=== PATIENT | female | born 1935 | race Hispanic/Latino ===

== ENCOUNTER 2022-02-03 17:22 | Inpatient (IN) | payer MEDICARE, OTHER ==
[~2022-02-03] VITALS: Ht 152.4 cm; Wt 54.4 kg
[2022-02-03] MEDS ORDERED: ONDANSETRON HCL INJ 2MG/ML 2ML 2 MG/ML VIAL IV STA (18:52)
[2022-02-03 19:22] LABS: BASOPHILS # (AUTO) 0.1 (0.0-0.1); BASOPHILS % 0.3 % (0.0-1.0); EOSINOPHILS % 0.2 % (0.0-6.0); HEMATOCRIT 38.2 % (34.2-44.1); LYMPHOCYTES # (AUTO) 1.9 (1.0-3.2); LYMPHOCYTES % 9.4 % (18.0-39.1); MEAN CORPUSCULAR HEMOGLOBIN 29.7 pg (28-32); MEAN CORPUSCULAR VOLUME 87.4 fL (81-99); MONOCYTES # (AUTO) 1.3 (0.2-0.8); MONOCYTES % 6.6 % (4.4-11.3); NEUTROPHILS # (AUTO) 16.3 (2.1-6.9); NEUTROPHILS % 82.8 % (38.7-80.0); PLATELET COUNT 200 x10e3/uL (140-360); RED BLOOD COUNT 4.37 x10e6/uL (3.6-5.1); RED CELL DISTRIBUTION WIDTH 13.3 % (11.7-14.4)
[2022-02-03 19:28] LABS: CLARITY,URINE CLOUDY (CLEAR); COLOR,URINE YELLOW (YELLOW); LEUKOCYTE ESTERASE ,URINE LARGE (NEGATIVE); NITRITE,URINE POSITIVE (NEGATIVE); PROTEIN,URINE DIPSTICK 1+ (NEGATIVE)
[2022-02-03 19:29] LABS: KETONES,URINE NEGATIVE (NEGATIVE); URINE UROBILINOGEN 0.2 mg/dL (0.2 - 1)
[2022-02-03 19:33] LABS: BACTERIA,URINE MODERATE /HPF; EPITHELIAL CELLS,URINE RARE /LPF; WBC,URINE (MAN) >50 /HPF (0-5)
[2022-02-03 19:43] LABS: ALANINE AMINOTRANSFERASE 20 IU/L (0-55); ALBUMIN 4.3 g/dL (3.5-5.0); ALKALINE PHOSPHATASE 116 IU/L (40-150); ANION GAP 19.2 mmol/L (8-16); BLOOD UREA NITROGEN 6 mg/dL (7-26); BUN/CREATININE RATIO 9 (6-25); CALCIUM 9.1 mg/dL (8.4-10.2); CARBON DIOXIDE 22 mmol/L (22-29); CHLORIDE 91 mmol/L (98-107); CREATINE KINASE 43 IU/L (29-168); CREATININE, SERUM 0.66 mg/dL (0.57-1.11); GLUCOSE 126 mg/dL (74-118); POTASSIUM 4.2 mmol/L (3.5-5.1); SODIUM 128 mmol/L (136-145)
[2022-02-03] MEDS ORDERED: ONDANSETRON HCL INJ 2MG/ML 2ML 2 MG/ML VIAL IV PRN (20:30)
[2022-02-03] MEDS: ACETAMINOPHEN 325 MG TAB PO PRN (21:39)
[2022-02-03] MEDS ORDERED: SODIUM CHLORIDE 0.9% 1000ML 1,000 ML IV ONE (21:45)
[2022-02-03] MEDS: SODIUM CHLORIDE 0.9% 1000ML 1,000 ML IV SCH (22:40)
[2022-02-03 23:47] VITALS: BP 107/66
[2022-02-04] VITALS (8 sets, daily range): BP systolic 98–129; BP diastolic 60–70
[2022-02-04] MEDS: SODIUM CHLORIDE 0.9% 1000ML 1,000 ML IV SCH (01:16)
[2022-02-04] MEDS ORDERED: PHENOBARBITAL64.8 MG PO (01:31)
[2022-02-04] MEDS ORDERED: LEVOTHYROXINE50 MCG PO (01:59)
[2022-02-04] MEDS ORDERED: OMEPRAZOLE40 MG PO (01:59)
[2022-02-04] MEDS ORDERED: SODIUM CHLORIDE1 GM PO ×2 (01:59)
[2022-02-04] MEDS ORDERED: VITAMIN D325 MCG (01:59)
[2022-02-04] MEDS ORDERED: FLONASE ALLERG9.9 ML INH (01:59)
[2022-02-04] MEDS ORDERED: TROSPIUM CHLORI60 MG PO (01:59)
[2022-02-04] MEDS ORDERED: KEPPRA250 MG PO (01:59)
[2022-02-04] MEDS ORDERED: POTASSIUM CHLO20 ME1 PO (01:59)
[2022-02-04 04:53] LABS: BASOPHILS % 0.2 % (0.0-1.0); EOSINOPHILS % 0.2 % (0.0-6.0); HEMATOCRIT 30.5 % (34.2-44.1); HEMOGLOBIN 10.5 g/dL (12.0-16.0); LYMPHOCYTES # (AUTO) 1.7 (1.0-3.2); LYMPHOCYTES % 16.5 % (18.0-39.1); MEAN CORPUSCULAR HEMOGLOBIN 29.9 pg (28-32); MEAN CORPUSCULAR HGB CONC 34.4 g/dL (31-35); MEAN CORPUSCULAR VOLUME 86.9 fL (81-99); MONOCYTES # (AUTO) 0.8 (0.2-0.8); NEUTROPHILS # (AUTO) 7.6 (2.1-6.9); NEUTROPHILS % 74.8 % (38.7-80.0); PLATELET COUNT 217 x10e3/uL (140-360); RED BLOOD COUNT 3.51 x10e6/uL (3.6-5.1)
[2022-02-04 05:23] LABS: CREATINE KINASE MB 1.5 ng/mL (0-5.0)
[2022-02-04 06:04] LABS: ALANINE AMINOTRANSFERASE 16 IU/L (0-55); ALBUMIN 3.3 g/dL (3.5-5.0); ALKALINE PHOSPHATASE 89 IU/L (40-150); ANION GAP 15.3 mmol/L (8-16); BLOOD UREA NITROGEN < 5 mg/dL (7-26); CALCIUM 7.9 mg/dL (8.4-10.2); CARBON DIOXIDE 23 mmol/L (22-29); CHLORIDE 99 mmol/L (98-107); CREATININE, SERUM 0.59 mg/dL (0.57-1.11); GLUCOSE 117 mg/dL (74-118); POTASSIUM 4.3 mmol/L (3.5-5.1); SODIUM 133 mmol/L (136-145)
[2022-02-04 06:06] LABS: BUN/CREATININE RATIO 8 (6-25)
[2022-02-04] MEDS: ACETAMINOPHEN 325 MG TAB PO PRN (11:01)
[2022-02-04 13:15] LABS: CREATINE KINASE MB 2.2 ng/mL (0-5.0)
[2022-02-04] MEDS ORDERED: BENZONATATE 100 MG CAP PO PRN (15:15)
[2022-02-04] MEDS ORDERED: HYDRALAZINE HCL 20 MG/ML VIAL IV PRN (15:15)
[2022-02-04] MEDS ORDERED: POTASSIUM CHLORIDE 20 MEQ TAB CR PO PRN (15:15)
[2022-02-04] MEDS ORDERED: SIMETHICONE 80 MG CHEW PO PRN (15:15)
[2022-02-04] MEDS ORDERED: MELATONIN 5 MG TABLET PO PRN (15:15)
[2022-02-04] MEDS ORDERED: LIDOCAINE 4% PATCH TP PRN (15:15)
[2022-02-04] MEDS ORDERED: PHENAZOPYRIDINE HCL 100 MG TAB PO PRN (15:15)
[2022-02-04] MEDS ORDERED: DOCUSATE SODIUM 100 MG CAP PO PRN (15:15)
[2022-02-04] MEDS ORDERED: DEXTROSE 50% SYRINGE 50 ML IV PRN (15:15)
[2022-02-04] MEDS ORDERED: CHLORASEPTIC SPRAY 177 ML BTL MM PRN (15:15)
[2022-02-04] MEDS ORDERED: FLORASTOR250 MG PO (16:06)
[2022-02-04] MEDS ORDERED: ALLEGRA ALLERGY60 MG PO (16:06)
[2022-02-04] MEDS: LEVETIRACETAM 500 MG TAB PO SCH (17:00)
[2022-02-04] MEDS: AMOXICILLIN 250 MG CAP PO SCH ×2 (17:02→21:12)
[2022-02-04] MEDS: ENOXAPARIN SOD INJ 40 MG/0.4 ML SYR SC SCH (17:03)
[2022-02-04 18:37] LABS: CREATINE KINASE MB 2.5 ng/mL (0-5.0)
[2022-02-05] VITALS (7 sets, daily range): BP systolic 123–154; BP diastolic 58–81
[2022-02-05] MEDS: AMOXICILLIN 250 MG CAP PO SCH ×3 (05:38→21:36)
[2022-02-05] MEDS: LEVOTHYROXINE SODIUM 50 MCG TAB PO SCH (05:38)
[2022-02-05 06:34] LABS: BASOPHILS # (AUTO) 0.1 (0.0-0.1); BASOPHILS % 0.9 % (0.0-1.0); EOSINOPHILS # (AUTO) 0.3 (0.0-0.4); EOSINOPHILS % 3.7 % (0.0-6.0); HEMATOCRIT 28.4 % (34.2-44.1); HEMOGLOBIN 9.9 g/dL (12.0-16.0); LYMPHOCYTES # (AUTO) 2.1 (1.0-3.2); LYMPHOCYTES % 26.4 % (18.0-39.1); MEAN CORPUSCULAR HEMOGLOBIN 29.8 pg (28-32); MEAN CORPUSCULAR HGB CONC 34.9 g/dL (31-35); MEAN CORPUSCULAR VOLUME 85.5 fL (81-99); MONOCYTES # (AUTO) 0.9 (0.2-0.8); MONOCYTES % 10.8 % (4.4-11.3); NEUTROPHILS # (AUTO) 4.6 (2.1-6.9); NEUTROPHILS % 57.8 % (38.7-80.0); PLATELET COUNT 192 x10e3/uL (140-360); RED BLOOD COUNT 3.32 x10e6/uL (3.6-5.1); RED CELL DISTRIBUTION WIDTH 13.2 % (11.7-14.4)
[2022-02-05 07:25] LABS: ANION GAP 12.3 mmol/L (8-16); BLOOD UREA NITROGEN < 5 mg/dL (7-26); CALCIUM 7.9 mg/dL (8.4-10.2); CARBON DIOXIDE 26 mmol/L (22-29); CHLORIDE 91 mmol/L (98-107); CREATININE, SERUM 0.54 mg/dL (0.57-1.11); GLUCOSE 99 mg/dL (74-118); MAGNESIUM 1.5 MG/DL (1.3-2.1); PHOSPHORUS 2.6 MG/DL (2.3-4.7); POTASSIUM 3.3 mmol/L (3.5-5.1); SODIUM 126 mmol/L (136-145)
[2022-02-05 07:32] LABS: BUN/CREATININE RATIO 9 (6-25)
[2022-02-05] MEDS ORDERED: SODIUM CHLORIDE 1 GM TAB PO SCH (09:00)
[2022-02-05] MEDS: PHENOBARBITAL 64.8 MG PO SCH (09:00)
[2022-02-05] MEDS: TROSPIUM CHLORIDE 60 MG PO SCH (09:00)
[2022-02-05] MEDS: LEVETIRACETAM 500 MG TAB PO SCH ×2 (09:34→17:25)
[2022-02-05] MEDS: PANTOPRAZOLE SOD 40 MG TABEC PO SCH (09:35)
[2022-02-05] MEDS ORDERED: MAGNESIUM SULFATE 2GM/50ML 50 ML IV ONE (10:45)
[2022-02-05] MEDS ORDERED: POTASSIUM CHLORIDE 20 MEQ TAB CR PO ONE (11:00)
[2022-02-05] MEDS: ACETAMINOPHEN 325 MG TAB PO PRN (12:03)
[2022-02-05] MEDS: ENOXAPARIN SOD INJ 40 MG/0.4 ML SYR SC SCH (17:25)
[2022-02-05] MEDS: SODIUM CHLORIDE 1 GM TAB PO SCH ×2 (17:25→21:00)
[2022-02-06] VITALS: BP 103/64
[2022-02-06] MEDS: LEVOTHYROXINE SODIUM 50 MCG TAB PO SCH (05:10)
[2022-02-06 05:50] LABS: BASOPHILS # (AUTO) 0.1 (0.0-0.1); BASOPHILS % 0.8 % (0.0-1.0); EOSINOPHILS # (AUTO) 0.3 (0.0-0.4); EOSINOPHILS % 4.1 % (0.0-6.0); HEMATOCRIT 29.8 % (34.2-44.1); HEMOGLOBIN 10.2 g/dL (12.0-16.0); LYMPHOCYTES # (AUTO) 2.4 (1.0-3.2); LYMPHOCYTES % 35.8 % (18.0-39.1); MEAN CORPUSCULAR HEMOGLOBIN 29.5 pg (28-32); MEAN CORPUSCULAR HGB CONC 34.2 g/dL (31-35); MEAN CORPUSCULAR VOLUME 86.1 fL (81-99); MONOCYTES # (AUTO) 0.8 (0.2-0.8); MONOCYTES % 12.6 % (4.4-11.3); NEUTROPHILS # (AUTO) 3.1 (2.1-6.9); NEUTROPHILS % 46.5 % (38.7-80.0); PLATELET COUNT 214 x10e3/uL (140-360); RED BLOOD COUNT 3.46 x10e6/uL (3.6-5.1); RED CELL DISTRIBUTION WIDTH 13.1 % (11.7-14.4)
[2022-02-06 06:03] VITALS: BP 155/75
[2022-02-06 06:27] LABS: % IRON SATURATION 11 % (15-50); ANION GAP 10.8 mmol/L (8-16); BLOOD UREA NITROGEN < 5 mg/dL (7-26); CALCIUM 7.9 mg/dL (8.4-10.2); CARBON DIOXIDE 27 mmol/L (22-29); CHLORIDE 95 mmol/L (98-107); CREATININE, SERUM 0.51 mg/dL (0.57-1.11); GLUCOSE 97 mg/dL (74-118); IRON 27 ug/dL (50-170); MAGNESIUM 1.7 MG/DL (1.3-2.1); POTASSIUM 3.8 mmol/L (3.5-5.1); SODIUM 129 mmol/L (136-145); TOTAL IRON BINDING CAPACITY 235 ug/dL (261-478); TRANSFERRIN 168 mg/dL (180-382)
[2022-02-06 06:29] LABS: BUN/CREATININE RATIO 10 (6-25)
[2022-02-06] MEDS: ACETAMINOPHEN 325 MG TAB PO PRN (06:56)
[2022-02-06 07:50] VITALS: BP 171/84
[2022-02-06 08:10] VITALS: BP 171/84
[2022-02-06] MEDS: SODIUM CHLORIDE 1 GM TAB PO SCH (08:35)
[2022-02-06] MEDS: PANTOPRAZOLE SOD 40 MG TABEC PO SCH (08:35)
[2022-02-06] MEDS: LEVETIRACETAM 500 MG TAB PO SCH (08:50)
[2022-02-06] MEDS: TROSPIUM CHLORIDE 60 MG PO SCH (09:00)
[2022-02-06] MEDS ORDERED: NITROFURANTOIN MACROCRYSTALS 100 MG CAP PO SCH (09:00)
[2022-02-06] MEDS ORDERED: LACTOBACILLUS ACIDOPHILUS CAPSULE PO SCH (09:00)
[2022-02-06] MEDS: PHENOBARBITAL 64.8 MG PO SCH (09:00)
[2022-02-06 11:41] VITALS: BP 161/82
[2022-02-06] MEDS ORDERED: IRON SUCROSE 100 MG in SODIUM CHLORIDE 0.9% 100 ML IV SCH (14:00)
[2022-02-06] MEDS ORDERED: ENOXAPARIN SOD INJ 40 MG/0.4 ML SYR SC SCH (17:00)
== END 2022-02-06 14:10 | disposition home health service (06) | DRG 699 ==
LOC: ER 17:26 → ERHOLD 20:25 → MED/SURG3 22:37
PROVIDERS: ADMIT Internal Medicine; ATTEND Internal Medicine
DX: T83.518A Infection and inflammatory reaction due to other urinary catheter, initial encounter (principal); E87.1 Hypo-osmolality and hyponatremia; N39.0 Urinary tract infection, site not specified; S01.01XA Laceration without foreign body of scalp, initial encounter; W01.10XA Fall on same level from slipping, tripping and stumbling with subsequent striking against unspecified object, initial encounter; Y93.9 Activity, unspecified; G40.909 Epilepsy, unspecified, not intractable, without status epilepticus; E87.6 Hypokalemia; B95.2 Enterococcus as the cause of diseases classified elsewhere; B96.89 Other specified bacterial agents as the cause of diseases classified elsewhere; Z88.5 Allergy status to narcotic agent; Z88.0 Allergy status to penicillin; Z88.8 Allergy status to other drugs, medicaments and biological substances; Z88.1 Allergy status to other antibiotic agents; Z91.040 Latex allergy status; Z99.89 Dependence on other enabling machines and devices; Z79.899 Other long term (current) drug therapy
CPT/HCPCS: 0223U; 36415; 70450; 72125; 72170; 80048; 80053; 81001; 82550; 82553; 83540; 83735; 84100; 84443; 84466; 84484; 85025; 87040; 87086; 87186; 93005; 99284; J0696; J1650; J1756; J2405; J3475; J7030; J7050